=== PATIENT | female | born 1990 | race Hispanic/Latino ===

== ENCOUNTER 2017-09-14 09:47 | Inpatient (IN) | payer MEDICAID ==
[~2017-09-14] VITALS: Ht 160 cm; Wt 78.5 kg
[~2017-09-14 09:47] MED LIST: FERR1TAB22 PO; PREN-196 PO; PREN1TAB89 PO
[2017-09-14] MEDS: LACTATED RINGERS 1000ML 1,000 ML IV PRN ×2 (10:55→13:25)
[2017-09-14] MEDS ORDERED: NALOXONE HCL 0.4 MG/1 ML ML IV PRN (11:15)
[2017-09-14] MEDS ORDERED: EPHEDRINE SULFATE 50 MG/ML AMPULE IVP PRN (11:15)
[2017-09-14] MEDS ORDERED: LACTATED RINGERS 500 ML 500 ML IV PRN (11:15)
[2017-09-14 11:24] LABS: APPEARANCE,URINE Clear (CLEAR); BILIRUBIN,URINE Negative (NEGATIVE); COLOR,URINE Yellow (YELLOW); GLUCOSE, URINE (UA) Negative (NEGATIVE); KETONES,URINE Negative (NEGATIVE); LEUKOCYTE ESTERASE ,URINE Negative (NEGATIVE); MEAN CORPUSCULAR HEMOGLOBIN 27.9 pg (27.0-33.0); MEAN CORPUSCULAR HGB CONC 34.7 g/dL (32.0-36.0); MEAN CORPUSCULAR VOLUME 80.3 fL (79-99); NITRATE,URINE Negative (NEGATIVE); OCCULT BLOOD,URINE Negative (NEGATIVE); PH,URINE 6.5 (5.0-8.0); PLATELET COUNT (AUTO) 314 K/uL (130-400); PROTEIN,URINE Negative (NEGATIVE); RED BLOOD CELL COUNT(AUTO) 4.11 MIL/uL (4.00-5.50); RED CELL DISTRIBUTION WIDTH 12.4 % (11.0-15.5); UROBILINOGEN,URINE 0.2 mg/dL (0.2-1.0); WHITE BLOOD COUNT (AUTO) 10.1 K/uL (4.8-10.8)
[2017-09-14] MEDS ORDERED: OXYTOCIN 10 USP UNITS/ML ONE ×2 (11:29)
[2017-09-14] MEDS ORDERED: LACTATED RINGERS 1000ML 1,000 ML IV ONE ×2 (11:29)
[2017-09-14] MEDS: OXYTOCIN 10 USP UNITS/ML 20 UNIT in LACTATED RINGERS 1000ML 1,000 ML IV SCH ×2 (11:38→16:00)
[2017-09-14] MEDS ORDERED: LIDOCAINE HCL 1% 20 ML VIAL ONE (15:13)
[2017-09-14] MEDS ORDERED: PROMETHAZINE HCL 25 MG/ML 1ML AMPULE IM ONE (15:26)
[2017-09-14] MEDS ORDERED: MEPERIDINE-PF 50 MG/ML SYG ONE (15:26)
[2017-09-14] MEDS ORDERED: ACETAMINOPHEN-CODEINE 300/30MG TAB PO PRN (16:15)
[2017-09-14] MEDS ORDERED: ACETAMINOPHEN 325 MG TAB PO PRN (16:15)
[2017-09-14] MEDS ORDERED: LANOLIN 30GM OINTMENT TP PRN (16:15)
[2017-09-14] MEDS ORDERED: MEASLES/MUMPS/RUBELLA VACCINE, LIVE 0.5 ML/VIAL SQ PRN (16:15)
[2017-09-14] MEDS ORDERED: BENZOCAINE/LANOLIN/ALOE VERA 60 ML AEROSOL TP PRN (16:15)
[2017-09-14] MEDS ORDERED: DIPH,PERTUSS(ACELL),TET VAC/PF 0.5 ML VIAL IM PRN (16:15)
[2017-09-14] MEDS ORDERED: WITCH HAZEL 1 PAD TP PRN (16:15)
[2017-09-14] MEDS: [UNRECOGNIZED DRUG - OTHER] PO SCH ×2 (17:00→21:45)
[2017-09-14] MEDS: SORBITOL PO SCH ×2 (17:00→21:45)
[2017-09-14] MEDS ORDERED: AMMONIA 1 EA AMP IH ONE (18:01)
[2017-09-14 18:12] VITALS: BP 126/73
[2017-09-14] MEDS: IBUPROFEN 800 MG TAB PO SCH (19:08)
[2017-09-14 19:51] VITALS: BP 120/84
[2017-09-14] MEDS: DOCUSATE SODIUM 100 MG CAP PO SCH (21:45)
[2017-09-14 23:23] VITALS: BP 101/53
[2017-09-15] MEDS: IBUPROFEN 800 MG TAB PO SCH ×3 (00:34→16:29)
[2017-09-15] MEDS: LACTATED RINGERS 1000ML 1,000 ML IV PRN (00:34)
[2017-09-15 03:14] VITALS: BP 103/51
[2017-09-15 07:47] VITALS: BP 99/56
[2017-09-15] MEDS: CHARCOAL/SORBITOL 50 GM/240 ML SUSP PO SCH ×2 (09:00→21:00)
[2017-09-15] MEDS: DOCUSATE SODIUM 100 MG CAP PO SCH ×2 (09:00→20:48)
[2017-09-15] MEDS: [UNRECOGNIZED DRUG - OTHER] PO SCH ×2 (09:00→20:47)
[2017-09-15] MEDS: SORBITOL PO SCH ×2 (09:00→20:47)
[2017-09-15 12:14] VITALS: BP 117/74
[2017-09-15 12:18] LABS: HEPATITIS Bs ANTIGEN SCREEN P Negative (Negative)
[2017-09-15] MEDS ORDERED: MIDAZOLAM HCL 1 MG/ML 2ML VIAL ONE (13:28)
[2017-09-15] MEDS ORDERED: PROPOFOL 10 MG/ML 20ML VIAL IV ONE ×2 (13:33→13:49)
[2017-09-15] MEDS ORDERED: FENTANYL CITRATE PF 50 MCG/1 ML 2ML VIAL ONE (13:40)
[2017-09-15] MEDS ORDERED: DIPH,PERTUSS(ACELL),TET VAC/PF 0.5 ML VIAL IM PRN (14:15)
[2017-09-15] MEDS ORDERED: BENZOCAINE/LANOLIN/ALOE VERA 60 ML AEROSOL TP PRN (14:15)
[2017-09-15] MEDS ORDERED: LANOLIN 30GM OINTMENT TP PRN (14:15)
[2017-09-15] MEDS ORDERED: IBUPROFEN 800 MG TAB PO PRN (14:15)
[2017-09-15] MEDS ORDERED: NALOXONE HCL 0.4 MG/1 ML ML IVP PRN (14:45)
[2017-09-15] MEDS ORDERED: PROMETHAZINE HCL 25 MG/ML 1ML AMPULE IM PRN (14:45)
[2017-09-15] MEDS ORDERED: MEPERIDINE-PF 50 MG/ML SYG ONE (14:45)
[2017-09-15] MEDS ORDERED: HYDROCODONE/ACETAMINOPHEN 5/325 MG TAB PO PRN ×2 (14:45)
[2017-09-15] MEDS ORDERED: EPHEDRINE SULFATE 50 MG/ML AMPULE IVP PRN (14:45)
[2017-09-15] MEDS ORDERED: ONDANSETRON HCL 4 MG/2 ML VIAL IVP PRN ×2 (14:45)
[2017-09-15] MEDS ORDERED: ONDANSETRON HCL 4 MG/2 ML 8 MG in SODIUM CHLORIDE 0.9% 50 ML IVP NR (14:45)
[2017-09-15] MEDS ORDERED: MORPHINE SULFATE 2 MG/ML 1ML SYG IVP PRN (14:45)
[2017-09-15] MEDS ORDERED: DiphenhydrAMINE HCL 50 MG/ML VIAL IVP PRN (14:45)
[2017-09-15] MEDS ORDERED: METOCLOPRAMIDE 10 MG/2 ML VIAL IVP PRN (14:45)
[2017-09-15 16:31] VITALS: BP 129/74
[2017-09-15] MEDS: WITCH HAZEL 1 PAD TP PRN (19:02)
[2017-09-15 19:48] VITALS: BP 114/58
[2017-09-15] MEDS: ACETAMINOPHEN-CODEINE 300/30MG TAB PO PRN (20:54)
[2017-09-15 23:05] VITALS: BP 113/57
[2017-09-16] MEDS: IBUPROFEN 800 MG TAB PO SCH ×3 (01:51→16:53)
[2017-09-16 03:16] VITALS: BP 108/64
[2017-09-16] MEDS: ACETAMINOPHEN-CODEINE 300/30MG TAB PO PRN (05:43)
[2017-09-16 06:53] LABS: HEMATOCRIT 25.9 % (36-48); MEAN CORPUSCULAR HEMOGLOBIN 27.5 pg (27.0-33.0); MEAN CORPUSCULAR HGB CONC 33.6 g/dL (32.0-36.0); MEAN CORPUSCULAR VOLUME 81.8 fL (79-99); PLATELET COUNT (AUTO) 264 K/uL (130-400); RED BLOOD CELL COUNT(AUTO) 3.16 MIL/uL (4.00-5.50); RED CELL DISTRIBUTION WIDTH 13.2 % (11.0-15.5); WHITE BLOOD COUNT (AUTO) 8.8 K/uL (4.8-10.8)
[2017-09-16 07:57] VITALS: BP 102/48
[2017-09-16] MEDS: CHARCOAL/SORBITOL 50 GM/240 ML SUSP PO SCH (09:00)
[2017-09-16] MEDS: DOCUSATE SODIUM 100 MG CAP PO SCH (09:08)
[2017-09-16] MEDS: [UNRECOGNIZED DRUG - OTHER] PO SCH (09:09)
[2017-09-16] MEDS: SORBITOL PO SCH (09:09)
[2017-09-16 11:24] VITALS: BP 111/59
[2017-09-16 15:27] VITALS: BP 125/81
[2017-09-16] MEDS: WITCH HAZEL 1 PAD TP PRN (17:58)
== END 2017-09-16 18:05 | disposition home or self-care (01) | DRG 541 ==
LOC: EDH 09:47 → LDH 09:48 → OBSVTOIN 09:48 → WSH 18:11
PROC: 10D07Z3 Extraction of Products of Conception, Low Forceps, Via Natural or Artificial Opening (ICD-10-PCS; principal; 2017-09-14)
PROC: 0DQR0ZZ Repair Anal Sphincter, Open Approach (ICD-10-PCS; 2017-09-14)
PROC: 3E0R3BZ Introduction of Anesthetic Agent into Spinal Canal, Percutaneous Approach (ICD-10-PCS; 2017-09-14)
PROC: 00HU33Z Insertion of Infusion Device into Spinal Canal, Percutaneous Approach (ICD-10-PCS; 2017-09-14)
PROC: 0UB70ZZ Excision of Bilateral Fallopian Tubes, Open Approach (ICD-10-PCS; 2017-09-15)
PROC: 3E0234Z Introduction of Serum, Toxoid and Vaccine into Muscle, Percutaneous Approach (ICD-10-PCS; 2017-09-15)
PROC: 3E0134Z Introduction of Serum, Toxoid and Vaccine into Subcutaneous Tissue, Percutaneous Approach (ICD-10-PCS; 2017-09-15)
DX: O76 Abnormality in fetal heart rate and rhythm complicating labor and delivery (principal); D62 Acute posthemorrhagic anemia; O98.82 Other maternal infectious and parasitic diseases complicating childbirth; O70.20 Third degree perineal laceration during delivery, unspecified; N89.5 Stricture and atresia of vagina; O90.81 Anemia of the puerperium; Z37.0 Single live birth; Z30.2 Encounter for sterilization; Z23 Encounter for immunization; Z3A.37 37 weeks gestation of pregnancy
CPT/HCPCS: 36415; 81003; 85027; 86592; 86850; 86900; 86901; 87340; 88305; 90715; A4314; A4606; J2175; J2250; J2405; J2550; J2590; J2704; J3010; J3490; J7120

== ENCOUNTER 2018-06-19 11:02 | Emergency (ER) | payer MEDICAID, OTHER ==
[2018-06-19 13:59] LABS: RAPID GROUP A STREP NEGATIVE (NEGATIVE)
== END 2018-06-19 14:15 | disposition home or self-care (01) ==
LOC: EDH 11:02
DX: J11.1 Influenza due to unidentified influenza virus with other respiratory manifestations (principal); Z98.51 Tubal ligation status; Z72.0 Tobacco use
CPT/HCPCS: 87804; 87880

== ENCOUNTER 2025-02-28 17:36 | Emergency (ER) | payer BC ==
[~2025-02-28] VITALS: Ht 157.5 cm; Wt 79.4 kg
[2025-02-28 18:14] LABS: COVID19 (SARS ANTIGEN RAPID) PRESUMPTIVE NEGATIVE (NEGATIVE)
[2025-02-28 18:15] LABS: INFLUENZA TYPE A Negative For Type A (NEGATIVE); INFLUENZA TYPE B Negative For Type B (NEGATIVE)
[2025-02-28 18:17] LABS: RAPID GROUP A STREP positive (NEGATIVE)
[2025-02-28 18:20] LABS: APPEARANCE,URINE CLEAR (CLEAR); GLUCOSE, URINE (UA) NEGATIVE (NEGATIVE); LEUKOCYTE ESTERASE ,URINE NEGATIVE Leu/uL (NEGATIVE); NITRATE,URINE NEGATIVE (NEGATIVE); OCCULT BLOOD,URINE NEGATIVE (NEGATIVE)
[2025-02-28 18:22] LABS: SQUAMOUS EPITHELIAL CELL,UR FEW /HPF (0-2)
[2025-02-28] MEDS ORDERED: AMOX500T2 PO (18:46)
--- NOTE | 2025-02-28 18:46 | ERN ---
General Chief Complaint: Flu Symptoms Stated Complaint: FLU LIKE SYMPTOMS Time Seen by MD: 17:45 Time Seen by Midlevel: 17:45 Source: patient History of Present Illness Initial Comments 34-year-old female who presents to the emergency department due to flu-like symptoms onset four days. Patient reports generalized body aches, fever, chills, sore throat. Denies any difficulty breathing, chest pain, abdominal pain, vomiting or further associated symptoms. Allergies: Coded Allergies: No Known Allergies (Unverified Allergy, Unknown, 06/21/17) Home Meds Active Scripts Amoxicillin (Amoxicillin) 500 Mg Tablet, 1 TAB PO BID for 10 Days, #20 TAB 0 Refills Prov:MILO MYLES 02/28/25 Reported Medications Ferrous Sulfate, Dried (Iron) 160 Mg Tablet.er, 160 MG PO DAILY, TAB 07/11/17 Vit No.124/Iron/FA ( Vitamin Tablet) 1 Each Tablet, 1 EACH PO DAILYDINNER, TAB 07/11/17 Vit W-Ca,Fe,FA(<1 mg) ( Vitamins) 1 Each Tablet, 1 EACH PO DAILYLUNCH, TAB 06/21/17 Past Medical History Past Medical History: No Pertinent History Past Surgical History: BTL Female( History) LMP: Jan 29, 2025 : 3 Para: 2 Aborts: 1 ROS Dictation Constitutional: Positive for fever, chills, generalized body aches Negative for weight loss Eyes: Negative for injury, pain,redness, and discharge ENT: Positive for sore throat Negative for injury,pain or swelling Cardiovascular: Negative for chest pain, palpitations, and edema Respiratory: Negative for shortness of breath, cough, and wheezing, Abdomen/GI: Negative for abdominal pain, nausea, vomiting, diarrhea, and constipation Back: Negative for injury and pain : Negative for painful urination, bleeding or discharge MS/Extremity: Negative for injury and deformity Skin: Negative for rash, and discoloration Neuro: Negative for headache, weakness, numbness, tingling, and seizure Psych: Negative for suicide ideation, homicidal ideation, and hallucinations Physical Exam Physical Exam Dictation General: awake, alert, no acute distress Head/Face: Normocephalic, atraumatic Eyes: PERRL, EOMI, normal conjunctiva ENT: oral cavity clear, TMs clear, oral mucosa moist Neck: Supple, normal range of motion Cardiovascular: RRR, normal S1/S2 Respiratory: CTAB, no respiratory distress, no rales or wheezes Abdomen: Soft, non-tender, non-distended, no guarding or rebound. Skin: Warm, dry, normal turgor, no rash MS/Extremity: Pulses equal, no cyanosis, neurovascular intact, FROM Neuro: COAx4, GCS 15, strength 5/5, CN 2-12 intact, normal cerebellar exam, normal gait Psych: Normal behavior, mood, and affect normal Results Laboratory and Microbiology Lab and Micro Result Laboratory Tests Test 02/28/25 17:50 02/28/25 18:15 Influenza Type A Antigen Negative For Type A Influenza Type B Antigen Negative For Type B SARS-CoV-2 Antigen (Rapid) PRESUMPTIVE NEGATIVE Group A Streptococcus Rapid positive (NEGATIVE) *A Urine Color YELLOW (YELLOW) Urine Appearance CLEAR (CLEAR) Urine pH 6.0 (5.0-8.0) Urine Specific [place] 1.020 (1.001-1.031) Urine Protein 20 mg/dL (NEGATIVE) H Urine Glucose (UA) NEGATIVE mg/dL (NEGATIVE) Urine Ketones 60 mg/dL (NEGATIVE) H Urine Occult Blood NEGATIVE (NEGATIVE) Urine Nitrate NEGATIVE (NEGATIVE) Urine Bilirubin NEGATIVE mg/dL (NEGATIVE) Urine Urobilinogen 0.2 mg/dL (0.2-1.0) Urine Leukocyte Esterase NEGATIVE Jens/uL Urine RBC 0-1 /HPF (0-1) Urine WBC 2-5 /HPF (0-1) H Urine Squamous Epithelial Cells FEW /HPF (0-2) Urine Bacteria RARE /HPF (None Seen) Labs Reviewed?: Yes MDM MDM: Differential diagnosis: Viral illness, strep, SARs, influenza, UTI Rationale: 34-year-old female who presents to the emergency department due to flu-like symptoms onset four days. Patient reports generalized body aches, fever, chills, sore throat. Denies any difficulty breathing, chest pain, abdominal pain, vomiting or further associated symptoms. Per physical examination patient is in no acute distress, nonlabored breathing. SARs and influenza negative. Strep pharyngitis positive. Patient received dose of Rocephin in the ED and acetaminophen. Fever and tachycardia improved after dm acetaminophen. Patient was educated on findings and diagnosis. Antibiotics prescribed for outpatient treatment. Advised to follow up with PCP. Return to the emergency department for any worsening symptoms. Stated verbalized understanding. Patient is stable for discharge. There are no social concerns with this patient. I independently interpreted the test that were performed, results were reviewed by me and considered findings on radiology if ordered. Medical management and examination interpretation discussions were had by me with other qualified healthcare professionals as indicated for the patient's care. ED Course Orders Procedure Category Date Status Time Covid19 (Sars Antigen LAB 02/28/25 Complete Rapid) 17:45 Influenza Type A & B, LAB 02/28/25 Complete Rapid 17:45 Rapid (Group A Strep) LAB 02/28/25 Complete 17:45 Urinalysis LAB 02/28/25 Complete W/Microscopic 18:03 Acetaminophen 500mg PHA 02/28/25 Complete Tab (Tylenol 500mg T 18:30 Ceftriaxone 1g Vial PHA 02/28/25 Complete (Rocephine 1g Inj) 18:30 Current Medications Medications (Trade) Dose Ordered Sig/Joceline Route PRN Reason Start Time Stop Time Status Last Admin Dose Admin Acetaminophen (TYLenol 500MG TAB) 1,000 mg ONCE ONCE PO 02/28/25 18:30 02/28/25 18:31 DC 02/28/25 18:32 Ceftriaxone Sodium (ROCEphine 1G INJ) 1 gm ONCE ONCE IM 02/28/25 18:30 02/28/25 18:31 DC 02/28/25 18:32 Vital Signs Date Time Temp Pulse Resp B/P (MAP) Pulse Ox O2 Delivery O2 Flow Rate FiO2 02/28/25 18:50 99.9 91 20 124/74 99 Room Air* 0 21 02/28/25 17:37 101.8 113 20 130/80 99 Room Air 0 DX & DISP Disposition: Discharge Departure Impression: Primary Impression: Acute pharyngitis Additional Impression: Strep pharyngitis Condition: Stable Scripts Amoxicillin (Amoxicillin) 500 Mg Tablet 1 TAB PO BID for 10 Days, #20 TAB 0 Refills Prov: MILO MYLES 02/28/25 Additional Instructions: Discharge home. Rest. Follow up with primary care in 24 hours. Return to the ER for any acute changes or worsening symptoms. If any medications were prescribed take as directed. Okay to continue home medications unless otherwise discussed during your visit in the emergency room today. Patient was also advised to follow-up with primary care physician in 1 to 2 days for continued monitoring. Referrals: SELF,REFERRAL (PCP) I performed the substantive portion of the visit. I have reviewed and personally made and approve the management plan that is documented in the notes by myself or the HILARY. I acknowledge full responsibility for the patient's management plan. MILO MYLES Feb 28, 2025 18:46
[2025-02-28 18:50] VITALS: BP 124/74; PULSE 91; RESP 20; TEMP 99.8; O2SAT 99
== END 2025-02-28 18:51 | disposition home or self-care (01) ==
LOC: EDH 17:36
DX: J02.0 Streptococcal pharyngitis (principal); Z98.51 Tubal ligation status; Z20.822 Contact with and (suspected) exposure to COVID-19
CPT/HCPCS: 99284; 87426; 87880; 87804 ×2; 81001; 96372; J0696

== ENCOUNTER 2025-03-17 21:18 | Emergency (ER) | payer BC ==
[~2025-03-17] VITALS: Ht 157.5 cm; Wt 77.1 kg
[~2025-03-17 21:18] MED LIST changes: +AMOX500T2 PO
[2025-03-17 22:12] LABS: APPEARANCE,URINE CLEAR (CLEAR); GLUCOSE, URINE (UA) NEGATIVE (NEGATIVE); LEUKOCYTE ESTERASE ,URINE NEGATIVE Leu/uL (NEGATIVE); NITRATE,URINE NEGATIVE (NEGATIVE); OCCULT BLOOD,URINE NEGATIVE (NEGATIVE)
[2025-03-17 22:17] LABS: ADD UA MICROSCOPIC YES
[2025-03-17 22:20] LABS: SQUAMOUS EPITHELIAL CELL,UR RARE /HPF (0-2)
[2025-03-17 22:22] LABS: AMPHET/METH SCREEN,URINE NEGATIVE (NEGATIVE); BARBITURATE SCREEN, URINE NEGATIVE (NEGATIVE); CANNABINOID SCREEN,URINE NEGATIVE (NEGATIVE); COCAINE SCREEN,URINE NEGATIVE (NEGATIVE)
[2025-03-17 22:33] LABS: IMMATURE GRANULOCYTE ABSOLUTE 0.03 K/uL (0-1); NUCLEATED RED BLOOD CELLS 0.0 % (0.0-0.19); PLATELET COUNT (AUTO) 378 K/uL (130-400); RED BLOOD CELL COUNT(AUTO) 4.31 MIL/uL (4.00-5.50); RED CELL DISTRIBUTION WIDTH 13.4 % (11.0-15.5); WHITE BLOOD COUNT (AUTO) 9.3 K/uL (4.8-10.8)
[2025-03-17 22:45] LABS: CREATININE 0.6 mg/dL (0.5-1.0); GLOMERULAR FILTR. RATE CALC 122.0 mL/min (>90); GLUCOSE,RANDOM 101.0 mg/dL (70-105); SODIUM SERUM 138.0 mmol/L (136-145); UREA NITROGEN, BLOOD 9.0 mg/dL (7-18)
[2025-03-17 22:49] LABS: CREATINE KINASE, TOTAL 49.0 U/L (21-232)
--- NOTE | 2025-03-17 23:37 | ERN ---
ED Note History of Present Illness Stated Complaint: ANXIETY, CHEST HEAVINESS Chief Complaint: Anxiety/Panic Attack Time Seen by MD: 21:19 Time Seen by Midlevel: 21:19 Dictation: The patient is a 34-year-old female with a history of anxiety who presents to the emergency department with complaints of chest pressure and anxiety onset a month ago. Patient reports that her anxiety was already better and had not been taking any medications for a year but she has been going through a lot of stress at home and has been working a lot. Patient however denies any suicidal or homicidal ideations. Reports she has kids and does not think about hurting herself. Denies any chest trauma, fever, upper respiratory symptoms. Allergies: Coded Allergies: No Known Allergies (Unverified Allergy, Unknown, 06/21/17) Home Meds Active Scripts Amoxicillin (Amoxicillin) 500 Mg Tablet, 1 TAB PO BID for 10 Days, #20 TAB 0 Refills Prov:MILO MYLES 02/28/25 Reported Medications Ferrous Sulfate, Dried (Iron) 160 Mg Tablet.er, 160 MG PO DAILY, TAB 07/11/17 Vit No.124/Iron/FA ( Vitamin Tablet) 1 Each Tablet, 1 EACH PO DAILYDINNER, TAB 07/11/17 Vit W-Ca,Fe,FA(<1 mg) ( Vitamins) 1 Each Tablet, 1 EACH PO DAILYLUNCH, TAB 06/21/17 Past Medical History Past Medical History: Anxiety, Depression Surgical History: BTL : 3 Para: 2 Aborts: 1 RN Note Reviewed/Agreed w/PFSH: Yes Review of System Dictation Constitutional: Negative for fever,chills, and weight loss Eyes: Negative for injury, pain,redness, and discharge ENT: Negative for injury,pain or swelling Cardiovascular: Negative for palpitations, and edema positive for chest pain Respiratory: Negative for shortness of breath, cough, and wheezing, Abdomen/GI: Negative for abdominal pain, nausea, vomiting, diarrhea, and constipation Back: Negative for injury and pain : Negative for injury, bleeding and discharge MS/Extremity: Negative for injury and deformity Skin: Negative for rash, and discoloration Neuro: Negative for headache, weakness, numbness, tingling, and seizure Psych: Negative for suicide ideation, homicidal ideation, and hallucinations Initial Vital Sign VS Vital Signs Date Time Temp Pulse Resp B/P (MAP) Pulse Ox O2 Delivery O2 Flow Rate FiO2 03/17/25 21:35 98.8 96 25 117/71 98 Room Air* 0 21 Physical Exam Dictation Vital Signs reviewed General Appearance: Alert, oriented x 3, no acute distress, well developed, nourished. Head and Face: non-traumatic. Eyes: PERRL, pink conjunctivas, eyelid no trauma, anterior chamber with arcus senilis. Ears: Pinnas intact and no signs of trauma or erythema ear canals clear and no discharge TM no erythema Nose: No discharge, no bleeding. Oropharynx: Mouth normal, tongue pink. pharynx clear,no erythema, tonsils no exudates, no abscesses noted, mucous membrane moist Neck: Supple, non-tender, no thyromegaly, no masses, no JVD, no bruits Breast:Deferred Chest:No tenderness, no crepitus, no paradoxical movement, no retractions Lungs:Clear, well-ventilated, symmetric, no rales, no wheezing, no rhonchi, no stridor, good breath sounds bilaterally Heart: Regular rate, regular rhythm, no murmur, no gallops Vascular: no peripheral edema, Abdomen: Soft, positive bowel sounds, nondistended, no guarding, nontender, no rebound, no masses no hepatomegaly, no splenomegaly, no Schuler's sign, no hernias. Rectal: Deferred Genital: Deferred Neurological: Normal speech, motor function intact, sensory function intact , upper extremities equal in strength, lower extremities equal in strength Musculoskeletal: Neck nontender, full range of motion, back nontender, full range of motion, Extremities: nontender, full range of motion Skin: Color pink, dry, no turgor, no rash, no lacerations, no abrasions, no contusions. Lymphatic: Deferred Results (Laboratory/Radiology) Laboratory/Radiology Laboratory Tests Test 03/17/25 22:00 03/17/25 22:25 Urine Color LIGHT-YELLOW (YELLOW) Urine Appearance CLEAR (CLEAR) Urine pH 6.0 (5.0-8.0) Urine Specific [place] 1.008 (1.001-1.031) Urine Protein NEGATIVE mg/dL (NEGATIVE) Urine Glucose (UA) NEGATIVE mg/dL (NEGATIVE) Urine Ketones 10 mg/dL (NEGATIVE) H Urine Occult Blood NEGATIVE (NEGATIVE) Urine Nitrate NEGATIVE (NEGATIVE) Urine Bilirubin NEGATIVE mg/dL (NEGATIVE) Urine Urobilinogen 0.2 mg/dL (0.2-1.0) Urine Leukocyte Esterase NEGATIVE Jens/uL Urine RBC 0-1 /HPF (0-1) Urine WBC 0-1 /HPF (0-1) Urine Squamous Epithelial Cells RARE /HPF (0-2) Urine Bacteria None /HPF (None Seen) Urine Opiates Screen NEGATIVE (NEGATIVE) Urine Barbiturates Screen NEGATIVE (NEGATIVE) Urine Phencyclidine Screen NEGATIVE (NEGATIVE) Urine Amphetamines Screen NEGATIVE (NEGATIVE) Urine Benzodiazepines Screen POSITIVE (NEGATIVE) H Urine Cocaine Screen NEGATIVE (NEGATIVE) Urine Marijuana (THC) Screen NEGATIVE (NEGATIVE) White Blood Count 9.3 K/uL (4.8-10.8) Red Blood Count 4.31 MIL/uL (4.00-5.50) Hemoglobin 13.1 g/dL (12.0-16.0) Hematocrit 38.0 % (36-48) Mean Corpuscular Volume 88.2 fL (79-99) Mean Corpuscular Hemoglobin 30.4 pg (27.0-33.0) Mean Corpuscular Hemoglobin Concent 34.5 g/dL (32.0-36.0) Red Cell Distribution Width 13.4 % (11.0-15.5) Platelet Count 378 K/uL (130-400) Mean Platelet Volume 9.4 fL (7.5-10.5) Immature Granulocyte % (Auto) 0.3 % (0-1) Neutrophils (%) (Auto) 76.9 % (40.0-77.0) Lymphocytes (%) (Auto) 17.0 % (21.0-51.0) L Monocytes (%) (Auto) 4.9 % (3.0-13.0) Eosinophils (%) (Auto) 0.1 % (0.0-8.0) Basophils (%) (Auto) 0.8 % (0.0-5.0) Neutrophils # (Auto) 7.2 K/uL (1.8-7.7) Lymphocytes # (Auto) 1.6 K/uL (1.0-4.8) Monocytes # (Auto) 0.5 K/uL (0.1-1.0) Eosinophils # (Auto) 0.01 K/uL (0.00-0.70) Basophils # (Auto) 0.07 K/uL (0.00-0.20) Absolute Immature Granulocyte (auto 0.03 K/uL (0-1) Nucleated Red Blood Cells 0.0 % (0.0-0.19) Sodium Level 138 mmol/L (136-145) Potassium Level 3.5 mmol/L (3.5-5.1) Chloride Level 103 mmol/L (101-111) Carbon Dioxide Level 30 mmol/L (21-32) Blood Urea Nitrogen 9 mg/dL (7-18) Creatinine 0.6 mg/dL (0.5-1.0) Glomerular Filtration Rate Calc 122 mL/min (>90) Random Glucose 101 mg/dL (70-105) Total Calcium 9.3 mg/dL (8.5-10.1) Magnesium Level 1.60 mg/dL (1.80-2.40) L Total Creatine Kinase 49 U/L (21-232) Troponin I High Sensitivity < 4 ng/L (4-50) L Serum Test, Qualitative NEGATIVE (NEGATIVE) REASON: cp ORDERING PHYSICIAN: MARCY ARRIOLA RAT POISONER PROCEDURE: CXR1VW - CHEST 1VW EXAM: CR Chest, 1 view. CLINICAL HISTORY: Chest pain. COMPARISON: None. FINDINGS: The lungs show no infiltrate or other acute findings. No pleural effusion or pneumothorax. The cardiomediastinal silhouette is within normal limits. No acute osseous abnormality. IMPRESSION: No acute cardiopulmonary pathology is evident. /[place] Labs Reviewed?: Yes EKG: (+) rhythm (Sinus rhythm) EKG Comment: Date:03/17/2025 Time:2207 Ventricular rate:98 NV interval:152 QRS duration:91 QT/QTc:359/460 EKG interpretation: Sinus rhythm Reviewed by ED Attending no STEMI ED Course ED Course Orders Procedure Category Date Status Time Cbc With Differential LAB 03/17/25 Complete 21: Chest 1vw RAD 03/17/25 Resulted 21: 12 Lead Ekg Tracing- EKG 03/17/25 Logged Technical 21: Magnesium LAB 03/17/25 Complete 21: Creatine Kinase, Total LAB 03/17/25 Complete 21: Troponin I High LAB 03/17/25 Complete Sensitivity 21: Urinalysis Profile LAB 03/17/25 Complete 21: Basic Metabolic Panel LAB 03/17/25 Complete : Drug Screen Urine LAB 03/17/25 Complete Testing, LAB 03/17/25 Complete Serum Hcg 21: Lorazepam 1 Mg PHA 03/17/25 Complete (Ativan) 21:30 Magnesium Oxide PHA 03/17/25 Complete (Mag-Ox) 23:00 Current Medications Medications (Trade) Dose Ordered Sig/Joceline Route PRN Reason Start Time Stop Time Status Last Admin Dose Admin Lorazepam (AtiVAN) 1 mg ONCE ONCE PO 03/17/25 21:30 03/17/25 21:57 DC 03/17/25 22:05 Magnesium Oxide (Mag-Ox) 400 mg ONCE ONCE PO 03/17/25 23:00 03/17/25 23:01 DC 03/17/25 23:40 Vital Signs Date Time Temp Pulse Resp B/P (MAP) Pulse Ox O2 Delivery O2 Flow Rate FiO2 03/17/25 22:39 95 22 110/68 98 Room Air* 0 21 03/17/25 21:35 99.5 102 18 117/71 100 Room Air 0 03/17/25 21:35 98.8 96 25 117/71 98 Room Air* 0 21 HEART Score Response (Comments) Value History: Low suspicion (0) 0 EKG: Normal 0 Age: < 45yrs (0) 0 Risk Factors: No known risk factors (0) 0 Initial Troponin: Normal limit (0) 0 HEART Score Risk: Low Risk for MACE (1-3) Total 0 Medical Decision Making MDM The patient is a 34-year-old female with a history of anxiety who presents to the emergency department with complaints of chest pressure and anxiety onset a month ago. Patient reports that her anxiety was already better and had not been taking any medications for a year but she has been going through a lot of stress at home and has been working a lot. Patient however denies any suicidal or homicidal ideations. Reports she has kids and does not think about hurting herself. Denies any chest trauma, fever, upper respiratory symptoms. CBC showed no leukocytosis, no anemia, chemistry showed mild hypomagnesemia, negative troponin, normal renal function. Urinalysis drug screen positive for benzos. EKG showed sinus rhythm. X-ray showed no acute pathology. On physical exam patient is in no acute distress, neurologically intact. Patient reports feeling better after medication administration. Patient will be discharged to follow up with PCP. Differential diagnosis: ACS, anxiety, pneumonia, electrolyte imbalance Need for hospitalization: Patient does not meet criteria for hospitalization. There are no social concerns with this patient. DX & DISP Disposition: Discharge Departure Impression: Primary Impression: Anxiety Condition: Stable Additional Instructions: Your labs were unremarkable. Please follow up with your primary doctor in 1-2 days. If anything worsens please return to ER. FOLLOW-UP WITH PRIMARY CARE PROVIDER IN 1 TO 2 DAYS. TAKE MEDICATIONS DIRECTED HERE IN THE EMERGENCY ROOM. OKAY TO CONTINUE HOME MEDICATIONS UNLESS OTHERWISE DISCUSSED DURING YOUR VISIT IN THE EMERGENCY ROOM TODAY. RETURN TO YOUR NEAREST EMERGENCY ROOM IF SYMPTOMS WORSEN OR IF THERE IS NO IMPROVEMENT. CALL 911 IF YOU NEED IMMEDIATE ASSISTANCE. TAKE TYLENOL [id number] NEEDED AND IF NO CONTRAINDICATIONS ARE PRESENT. INCREASE ORAL HYDRATION. A WOUND CULTURE OR URINE CULTURE WAS ORDERED HERE IN THE EMERGENCY ROOM DEPARTMENT PLEASE FOLLOW-UP WITH PRIMARY CARE PROVIDER AND ADVISE THEM TO GET REPEAT PORTS FROM OUR FACILITY. IF YOU HAD ANY CODY WRAP/SPLINTS THAT WERE APPLIED HERE, PLEASE DO NOT REMOVE THEM UNTIL YOU SEE YOUR PRIMARY CARE OR SPECIALTY. Referrals: SELF,REFERRAL (PCP) Time of Disposition: 00:21 I have reviewed the case, and I agree with, Diagnosis and Plan MARCY ARRIOLA Mar 17, 2025 23:37
[2025-03-17] MEDS: MAGNESIUM OXIDE 400 MG TABLET PO ONE (23:40)
--- NOTE | 2025-03-18 00:26 | HMCIMG ---
EXAM: CR Chest, 1 view. CLINICAL HISTORY: Chest pain. COMPARISON: None. FINDINGS: The lungs show no infiltrate or other acute findings. No pleural effusion or pneumothorax. The cardiomediastinal silhouette is within normal limits. No acute osseous abnormality. IMPRESSION: No acute cardiopulmonary pathology is evident. /[place]
[2025-03-18 00:38] VITALS: BP 115/68; PULSE 96; RESP 25; TEMP 98.8; O2SAT 98
--- NOTE | 2025-03-18 07:25 | EKG ---
[facility] Test Date: 2025-03-17 Test Time: 22:08:49 Pat Name: MARCOS SUMNER Department: ED Room: Gender: Female [employer] Helper: [phone] : 1990 Requested By: MARCY ARRIOLA Order Number: [id number] Reading MD: Measurements Intervals [place] Rate: 98 P: 66 UT: 152 QRS: 61 QRSD: 91 T: 31 QT: 359 QTc: 460 Interpretive Statements Sinus rhythm Probable left atrial enlargement No previous ECG available for comparison Please click the below link to view image of tracing.
== END 2025-03-18 01:01 | disposition home or self-care (01) ==
LOC: EDH 21:18
DX: F41.9 Anxiety disorder, unspecified (principal); F32.A Depression, unspecified; Z98.51 Tubal ligation status; Z79.899 Other long term (current) drug therapy
CPT/HCPCS: 36415; 71045; 80048; 80305; 81001; 82550; 83735; 84484; 84703; 85025; 93005; 99284